=== PATIENT | male | born 1950 | race Caucasian/White ===

== ENCOUNTER 2018-09-12 09:15 | Inpatient (IN) | payer MEDICARE, OTHER ==
[2018-12-19] MEDS ORDERED: Sodium Chloride 0.9% 10 ML Syringe FLUSH PRN (00:01)
[2018-12-19] MEDS ORDERED: Lactated Ringers 1,000 ML IV SCH (00:01)
[2018-12-19] MEDS ORDERED: Lidocaine 1%/Sod Bicarbonate in NS 8.4% 1 ML Syringe IDERM PRN (00:01)
[2018-12-19] MEDS ORDERED: Pregabalin 25 MG Cap PO SCH (06:00)
[2018-12-19] MEDS ORDERED: Acetaminophen 325 MG Tab PO SCH (06:00)
[2018-12-19] MEDS ORDERED: oxyCODONE ER 10 MG TAB.ER PO SCH (06:00)
[2018-12-19] MEDS ORDERED: Cyclobenzaprine 10 MG Tab PO PRN (11:30)
[2018-12-19] MEDS ORDERED: Sennosides 8.6 MG Tab PO PRN (11:31)
[2018-12-19] MEDS ORDERED: Morphine 2 MG/ML Syringe IVPUSH PRN (11:31)
[2018-12-19] MEDS ORDERED: Bisacodyl 5 MG Tab PO PRN (11:31)
[2018-12-19] MEDS ORDERED: Magnesium Hydroxide 400 MG/5 ML Susp 30 ML Cup PO PRN (11:31)
[2018-12-19] MEDS ORDERED: Ondansetron 4 MG/2 ML SDV IVPUSH PRN (11:31)
[2018-12-19] MEDS ORDERED: Naloxone 0.4 MG/ML SDV IVPUSH PRN (11:31)
[2018-12-19] MEDS ORDERED: Midazolam 1 MG/ML 2 ML SDV ONE (11:46)
[2018-12-19] MEDS ORDERED: Lidocaine 1% PF 2 ML SDV ONE (11:46)
[2018-12-19] MEDS ORDERED: fentaNYL 250 MCG/5 ML SDV ONE (11:46)
[2018-12-19] MEDS ORDERED: Propofol 200 MG/20 ML SDV ONE ×2 (11:46→14:58)
[2018-12-19] MEDS ORDERED: Morphine PF 10 MG/10 ML SDV ONE (11:57)
[2018-12-19] MEDS ORDERED: Vancomycin 1 GM, Vancomycin 250 MG in Sodium Chloride 0.9% 250 ML IV ONE (12:00)
--- NOTE | 2018-12-19 12:37 | PCM.PREANE ---
<Kimmy Stiles - Last Filed: 12/19/18 12:29> Preanesthetic Assessment - Anesthesia/Transfusion/Family Hx Anesthesia History: Prior Anesthesia Without Reaction Transfusion History: No Prior Transfusion(s) - Review of Systems General: Fatigue Pulmonary: No Symptoms (Asthma(COPD) quit smoking 1979) Cardiovascular: No Symptoms (CAD, History of [place], History of HTN, CABG 1993 times 2 vessels) Other: Reports: Sinus Problem (seasonal allergies noted) - Physical Assessment NPO Status Date: 12/18/18 NPO Status Time: 22:00 Pulse: 54 O2 Sat by Pulse Oximetry: 94 Respiratory Rate: 16 Blood Pressure: 125/70 Temperature: 36.7 C Vital Signs: Last Vital Signs Temp 36.7 C 12/19/18 12:40 Pulse 54 L 12/19/18 12:40 Resp 16 12/19/18 12:40 BP 125/70 12/19/18 12:40 Pulse Ox 94 L 12/19/18 12:40 Height: 1.73 m Weight: 91 kg ASA Class: 3 Mental Status: Alert & Oriented x3 - Lab Values: Laboratory Last Values MRSA (PCR) Positive H 08/17/18 15:30 Blood Type O POSITIVE 12/19/18 11:15 Gel Antibody Screen Negative 12/19/18 11:15 All labs reviewed and noted and within acceptable ranges to proceed with scheduled procedure. - Imaging/EKG Impressions: Stress Test: EF: 69%/mild basal to distal inferior reversible defect with moderate hypokinesis CXR: negative Echocardiogram:EF: 55-60% mild to moderate mitral annular calcification EKG SB rate=54 with left axis deviation and Q waves in leads II, III, and AVF. - Allergies Allergies/Adverse Reactions: Allergies Allergy/AdvReac Type Severity Reaction Status Date / Time No Known Allergies Allergy Verified 12/16/18 12:34 - Anesthesia Plan Pre-Op Medication Ordered: Other (pre-op meds: 1134) - Acknowledgements Anesthesia Type Planned: Spinal Pt an Appropriate Candidate for the Planned Anesthesia: Yes Alternatives and Risks of Anesthesia Discussed w Pt/Guardian: Yes Pt/Guardian Understands and Agrees with Anesthesia Plan: Yes PreAnesthesia Questionnaire HEENT History: Reports: Impaired Vision, Other (See Below) Other HEENT History: partials, glasses Cardiovascular History: Reports: CAD, High Cholesterol, Hypertension, [place], Other (See Below) Other Cardiovascular History: angiogram Respiratory History: Reports: Asthma Gastrointestinal History: Reports: None Genitourinary History: Reports: None [employer] History: Reports: None Musculoskeletal History: Reports: None Neurological History: Reports: None Psychiatric History: Reports: None Endocrine/Metabolic History: Reports: None Hematologic History: Reports: None Immunologic History: Reports: None Oncologic (Cancer) History: Reports: None Dermatologic History: Reports: None - Past Surgical History Head Surgeries/Procedures: Reports: None Cardiovascular Surgical History: Reports: Coronary Artery Bypass Respiratory Surgical History: Reports: None GI Surgical History: Reports: Colonoscopy Female Surgical History: Reports: None Male Surgical History: Reports: None Endocrine Surgical History: Reports: None Neurological Surgical History: Reports: None Musculoskeletal Surgical History: Reports: None Oncologic Surgical History: Reports: None Dermatological Surgical History: Reports: None - SUBSTANCE USE Smoking Status *Q: Former Smoker Recreational Drug Use History: No - HOME MEDS Home Medications: Home Meds Albuterol [Ventolin HFA] 2 puff INH Q4H PRN 12/16/18 [History] Aspirin [Adult Aspirin] 81 mg PO DAILY 12/16/18 [History] Lisinopril 20 mg PO DAILY 12/16/18 [History] Simvastatin [Zocor] 40 mg PO DAILY 12/16/18 [History] - CURRENT (IN HOUSE) MEDS Current Meds: Current Medications Acetaminophen (Tylenol) 975 mg PO ONETIME [facility] Stop: 12/19/18 18:00 Last Admin: 12/19/18 11:34 Dose: 975 mg Aspirin (Ecotrin) 325 mg PO BID YANNA Bisacodyl (Dulcolax) 5 mg PO DAILY PRN PRN Reason: Constipation Cyclobenzaprine HCl (Flexeril) 10 mg PO TID PRN PRN Reason: Spasms Docusate Sodium (Colace) 100 mg PO BID YANNA Famotidine (Pepcid) 20 mg PO Q12H [facility] Lactated Ringer's (Ringers, Lactated) 1,000 mls @ 125 mls/hr IV ASDIRECTED [facility] Stop: 12/19/18 23:00 Last Admin: 12/19/18 11:10 Dose: 125 mls/hr Cefazolin Sodium/Dextrose 2 gm (/ Premix) 50 mls @ 100 mls/hr IV Q8H [facility] Stop: 12/20/18 03:59 Vancomycin HCl 1 gm/Vancomycin HCl 250 mg/ Sodium Chloride 250 mls @ 166.667 mls/hr IV ONETIME ONE Stop: 12/19/18 13:29 Last Admin: 12/19/18 12:36 Dose: 166.667 mls/hr Ketorolac Tromethamine (Toradol) 15 mg IVPUSH Q6H PRN PRN Reason: Pain Lidocaine/Sodium Bicarbonate (Buffered Lidocaine 1% In Ns 8.4%) 0.25 ml IDERM ONETIME PRN PRN Reason: Prior to IV Start Stop: 12/19/18 23:00 Magnesium Hydroxide (Milk Of Magnesia) 30 ml PO BID PRN PRN Reason: Constipation Morphine Sulfate (Morphine) 2 mg IVPUSH Q2H PRN PRN Reason: Breakthrough Pain Naloxone HCl (Narcan) 0.1 mg IVPUSH Q5M PRN PRN Reason: Oversedation Ondansetron HCl (Zofran) 4 mg IVPUSH Q6H PRN PRN Reason: Nausea/Vomiting Oxycodone HCl (Oxycontin) 10 mg PO ONETIME [facility] Stop: 12/19/18 23:00 Last Admin: 12/19/18 11:34 Dose: 10 mg Oxycodone/Acetaminophen (Percocet 325-5 Mg) 1 - 2 tab PO Q4H PRN PRN Reason: Pain Pregabalin (Lyrica) 50 mg PO ONETIME [facility] Stop: 12/19/18 18:00 Last Admin: 12/19/18 11:34 Dose: 50 mg Senna (Senna) 8.6 mg PO BID PRN PRN Reason: Constipation Sodium Chloride (Saline Flush) 10 ml FLUSH ASDIRECTED PRN PRN Reason: Keep Vein Open Discontinued Medications Bupivacaine HCl (Marcaine 0.25%) Confirm Administered Dose 30 ml .ROUTE .STK- MED ONE Stop: 12/19/18 12:09 Cefazolin Sodium (Ancef) Confirm Administered Dose 2 gm .ROUTE .STK-MED ONE Stop: 12/19/18 12:09 Morphine Sulfate 8 mg/Epinephrine HCl 0.3 mg/Cefuroxime Sodium 750 mg/Ketorolac Tromethamine 30 mg/Sodium Chloride 27.9 ml 0 mg .XX ONETIME ONE Stop: 12/19/18 12:01 Fentanyl (Sublimaze) Confirm Administered Dose 250 mcg .ROUTE .STK-MED ONE Stop: 12/19/18 11:47 Iodine (Iodine 2% Mild Tincture) Confirm Administered Dose 30 ml .ROUTE .STK- MED ONE Stop: 12/19/18 12:09 Lidocaine HCl (Xylocaine-Mpf 1%) Confirm Administered Dose 4 ml .ROUTE .STK-MED ONE Stop: 12/19/18 11:47 Midazolam HCl (Versed 1 Mg/Ml) Confirm Administered Dose 2 mg .ROUTE .STK-MED ONE Stop: 12/19/18 11:47 Morphine Sulfate (Duramorph Pf) Confirm Administered Dose 10 mg .ROUTE .STK-MED ONE Stop: 12/19/18 11:58 Propofol (Diprivan 20 Ml) Confirm Administered Dose 200 mg .ROUTE .STK-MED ONE Stop: 12/19/18 11:47 Tranexamic Acid (Cyklokapron) Confirm Administered Dose 1,000 mg .ROUTE .STK- MED ONE Stop: 12/19/18 12:09 Vancomycin HCl (Pharmacy To Dose - Vancomycin) 1 dose .XX ONETIME ONE Stop: 12/19/18 10:39 Vancomycin HCl (Vancomycin) Confirm Administered Dose 1 gm .ROUTE .STK-MED ONE Stop: 12/19/18 12:09 <Bayron Bahena R - Last Filed: 12/19/18 12:55> Preanesthetic Assessment - Anesthesia/Transfusion/Family Hx Anesthesia History: Prior Anesthesia Without Reaction Family History of Anesthesia Reaction: No Transfusion History: No Prior Transfusion(s) - Review of Systems General: Fatigue Pulmonary: No Symptoms Cardiovascular: No Symptoms, Dyspnea on Exertion Gastrointestinal: No Symptoms Neurological: No Symptoms Other: Reports: Sinus Problem - Physical Assessment ASA Class: 3 Mental Status: Alert & Oriented x3 Airway Class: Mallampati = 2 Dentition: Reports: Partial, Missing Tooth/Teeth (front) Thyro-Mental Finger Breadths: 2 Mouth Opening Finger Breadths: 2 ROM/Head Extension: Full Lungs: Clear to Auscultation, Normal Respiratory Effort Cardiovascular: Regular Rate, Regular Rhythm - Anesthesia Plan Pre-Op Medication Ordered: Other - Acknowledgements Anesthesia Type Planned: Spinal Pt an Appropriate Candidate for the Planned Anesthesia: Yes Alternatives and Risks of Anesthesia Discussed w Pt/Guardian: Yes Pt/Guardian Understands and Agrees with Anesthesia Plan: Yes PreAnesthesia Questionnaire Gastrointestinal History: Reports: GERD - SUBSTANCE USE Smoking Status *Q: Former Smoker Tobacco Use Within Last Twelve Months: Snuff/Dip Second Hand Smoke Exposure: Yes Days Per Week of Alcohol Use: 4 Number of Drinks Per Day: 2 Total Drinks Per Week: 8 Recreational Drug Use History: No
[2018-12-19] MEDS ORDERED: Ketorolac 15 MG/ML SDV IVPUSH PRN (13:00)
[2018-12-19] MEDS ORDERED: ePHEDrine/Normal Saline 25 MG/5 ML Syringe ONE ×2 (15:00→15:18)
[2018-12-19] MEDS: Bupivacaine 0.25% 30 ML SDV ONE ×2 (15:17→15:40)
[2018-12-19] MEDS: Iodine/Sodium Iodide 2% Tincture 30 ML Bottle ONE ×2 (15:17→15:36)
[2018-12-19] MEDS: ceFAZolin 1 GM Vial ONE ×2 (15:17→15:37)
[2018-12-19] MEDS: Vancomycin 1 GM SDV ONE ×2 (15:18→15:44)
[2018-12-19] MEDS: Morphine 8 MG, EPINEPHrine 0.3 MG, Cefuroxime 750 MG, Ketorolac 30 MG, Sodium Chloride ... ONE ×10 (15:18→15:42)
[2018-12-19] MEDS ORDERED: Albuterol 6.7 GM Inhaler INH PRN (16:07)
--- NOTE | 2018-12-19 16:21 | PCM.POSTAN ---
POST ANESTHESIA ASSESSMENT - MENTAL STATUS Mental Status: Alert, Oriented - VITAL SIGNS Pulse Rate: 73 SaO2: 94 Resp Rate: 12 Blood Pressure: 115/54 Temperature: 36.3 C - RESPIRATORY Respiratory Status: Respiratory Rate WNL, Airway Patent, O2 Saturation Stable - CARDIOVASCULAR CV Status: Pulse Rate WNL, Blood Pressure Stable - GASTROINTESTINAL GI Status: No Symptoms - PAIN Pain Score: 0 - POST OP HYDRATION Hydration Status: Adequate & Stable - OBSERVATIONS Free Text/Narrative:: no anesthesia complications noted
--- NOTE | 2018-12-19 16:58 | CR ---
Pelvis and right hip: AP view of the pelvis was obtained as well as lateral view of the right hip. Comparison: No previous pelvis or hip exam is available. Right hip prosthesis is seen. Components are aligned. Small amount of soft tissue air is noted from surgical procedure. Mild vascular calcification. Impression: 1. Satisfactory postoperative radiographic appearance of recently placed right hip prosthesis. 2. Other incidental findings. Diagnostic code #2
--- NOTE | 2018-12-19 18:59 | PCM.CONS ---
H&P History of Present Illness - General Date of Service: 12/19/18 Admit Problem/Dx: Admission Diagnosis/Problem Admission Diagnosis/Problem Osteoarthritis of hip Source of Information: Patient - History of Present Illness Initial Comments - Free Text/Narative: This is a 68-year-old male that comes in for a right total hip replacement. He has a history of coronary artery disease with two-vessel bypass in 1989 for post [place]. He has a history of mild intermittent asthma with only occasional use of albuterol in the summer. Patient has not used his albuterol in several months. Patient was seen by cardiology and [place] and then sent to a drum puller in [place]. Myocardial perfusion scan done in October of this year reported negative.. Postop patient is without chest discomfort, shortness breath, headache, blurred vision, or abdominal pain. He states he is generally feeling well except for a little lightheadedness from anesthesia. He states his resting heart rate is usually in the 60s. He is on lisinopril for his hypertension. He is not on a beta javier. Surgery and postop was without incident. Right Hip Pain Score (Numeric/FACES): 3 - Related Data Allergies/Adverse Reactions: Allergies Allergy/AdvReac Type Severity Reaction Status Date / Time No Known Allergies Allergy Verified 12/16/18 12:34 Home Medications: Home Meds Albuterol [Ventolin HFA] 2 puff INH Q4H PRN 12/16/18 [History] Lisinopril 20 mg PO DAILY 12/16/18 [History] Simvastatin [Zocor] 40 mg PO DAILY 12/16/18 [History] Acetaminophen/oxyCODONE [Percocet 325-5 MG] 1 - 2 tab PO Q6H PRN #60 tablet [Rx] Aspirin [Ecotrin] 325 mg PO BID #84 tab.ec 12/19/18 [Rx] Bisacodyl [Dulcolax] 5 mg PO DAILY PRN tablet 12/19/18 [Rx] Cyclobenzaprine [Flexeril] 10 mg PO TID PRN #40 tablet 12/19/18 [Rx] Docusate Sodium [Colace] 100 mg PO BID cap 12/19/18 [Rx] Famotidine [Pepcid] 20 mg PO Q12H tablet 12/19/18 [Rx] Magnesium Hydroxide [Milk of Magnesia] 30 ml PO BID PRN cup 12/19/18 [Rx] Sennosides [Senna] 8.6 mg PO BID PRN tablet 12/19/18 [Rx] Past Medical History HEENT History: Reports: Impaired Vision, Other (See Below) Other HEENT History: partials, glasses Cardiovascular History: Reports: Bypass, CAD, High Cholesterol, Hypertension, [place] , Other (See Below) (Left anterior fascicular block) Other Cardiovascular History: angiogram, CABG x2 Respiratory History: Reports: Asthma Gastrointestinal History: Reports: GERD Other Gastrointestinal History: peptic ulcer in the past. No current issues. Genitourinary History: Reports: None HOME MANAGER History: Reports: None Musculoskeletal History: Reports: None Neurological History: Reports: None Psychiatric History: Reports: None Endocrine/Metabolic History: Reports: None Hematologic History: Reports: None Immunologic History: Reports: None Oncologic (Cancer) History: Reports: None Dermatologic History: Reports: None - Infectious Disease History Infectious Disease History: Reports: Chicken Pox, MRSA - Past Surgical History Head Surgeries/Procedures: Reports: None HEENT Surgical History: Reports: None Cardiovascular Surgical History: Reports: Coronary Artery Bypass Respiratory Surgical History: Reports: None Male Surgical History: Reports: None Endocrine Surgical History: Reports: None Neurological Surgical History: Reports: None Musculoskeletal Surgical History: Reports: None Oncologic Surgical History: Reports: None Dermatological Surgical History: Reports: None Social & Family History - Family History Cardiac: Reports: Heart Failure, [place] OBGYN: Reports: Other (See Below) Other OBGYN Family History: Ovarian cancer Musculoskeletal: Reports: Arthritis Endocrine/Metabolic: Reports: Diabetes, type II Oncologic: Reports: Ovarian - Tobacco Use Smoking Status *Q: Former Smoker Years of Tobacco use: 11 Used Tobacco, but Quit: Yes Month/Year Tobacco Last Used: February 1980 Second Hand Smoke Exposure: Yes - Caffeine Use Caffeine Use: Reports: Coffee, Tea Other Caffeine Use: Daily - Alcohol Use Days Per Week of Alcohol Use: 4 Number of Drinks Per Day: 2 Total Drinks Per Week: 8 Date of Last Drink: 12/17/18 Time of Last Drink: 17:00 - Recreational Drug Use Recreational Drug Use: No Drug Use in Last 12 Months: No H&P Review of Systems - Review of Systems: Review Of Systems: ROS reveals no pertinent complaints other than HPI. Exam - Exam Exam: See Below - Vital Signs Vital Signs: Last Vital Signs Temp 97.3 F 12/19/18 17:00 Pulse 54 L 12/19/18 18:33 Resp 15 12/19/18 18:00 BP 128/57 L 12/19/18 18:33 Pulse Ox 98 12/19/18 18:33 Weight: 202 lb - Exam General: Alert, Oriented, Cooperative HEENT: Conjunctiva Clear, Mucosa Moist & [place] Neck: Supple, Trachea Midline Lungs: Clear to Auscultation, Normal Respiratory Effort Cardiovascular: Regular Rate, Regular Rhythm, Systolic Murmur (Faint systolic murmur at the right second intercostal space.) GI/Abdominal Exam: Normal Bowel Sounds, Soft, Non-Tender, No Distention, No Abnormal Bruit Back Exam: Normal Inspection Extremities: Other (SCD on left leg without signs of edema. Right leg not examined.) - Patient Data Lab Results Last 24 hrs: Laboratory Results - last 24 hr 12/19/18 Range/Units 11:15 Blood Type O POSITIVE Gel Antibody Screen Negative Imaging Impressions Last 24 hrs: ECG from September 12, 2018 showed sinus bradycardia with a ventricular rate of 54 bpm. The left anterior fascicular block. Evidence of old inferior [place]. Lateral T-wave changes. Consult PN Assessment/Plan POD#: 0 Procedures: Procedures CARDIOVASCULAR STRESS TEST (10/12/18) HT MUSCLE IMAGE SPECT MULT (10/12/18) MR-STAPH DNA AMP PROBE (12/09/18) TTE W/DOPPLER COMPLETE (10/12/18) (1) S/P prosthetic total arthroplasty of the hip SNOMED Code(s): 686454549825, 151750953387 Code(s): Z96.649 - PRESENCE OF UNSPECIFIED ARTIFICIAL HIP JOINT Current Visit: Yes Qualifiers: Laterality: right Qualified Code(s): Z96.641 - Presence of right artificial hip joint (2) Bradycardia SNOMED Code(s): 96269674 Code(s): R00.1 - BRADYCARDIA, UNSPECIFIED Current Visit: Yes (3) CAD (coronary artery disease) SNOMED Code(s): 15165072 Code(s): I25.10 - ATHSCL HEART DISEASE OF [place] CORONARY ARTERY W/O ANG PCTRS Current Visit: Yes (4) Asthma SNOMED Code(s): 418800709 Code(s): J45.909 - UNSPECIFIED ASTHMA, UNCOMPLICATED Current Visit: Yes Problem List Initiated/Reviewed/Updated: Yes Plan: s/p right total arthroplasty of the hip - no complications post op - Primary team managing pain control and VTE prophylaxis Asymptomatic Bradycardia - EKG from September 2018 showed his heart rate to be 54 bpm with sinus bradycardia. Currently his pulse is ranging between 48 and 53. - patient without symptoms. Monitor overnight. He is not on any beta blockers. CAD - no chest pain or SOB - Negative coronary cath reported by pt. Mild Intermittent Asthma - Lungs clear, no cough or SOB - Encourage spirometry Recommend start home meds. No further recommendations at this time.
[2018-12-19] MEDS: ceFAZolin 2 GM in Premix Bag 1 BAG IV SCH (20:42)
[2018-12-19] MEDS: Docusate Sodium 100 MG Cap PO SCH (20:43)
[2018-12-19] MEDS: Famotidine 20 MG Tab PO SCH (20:43)
[2018-12-19] MEDS: Acetaminophen/oxyCODONE 325-5 MG Tab PO PRN (23:28)
[2018-12-20] MEDS: ceFAZolin 2 GM in Premix Bag 1 BAG IV SCH ×2 (03:42→11:14)
[2018-12-20] MEDS: Acetaminophen/oxyCODONE 325-5 MG Tab PO PRN ×2 (03:42→13:02)
--- NOTE | 2018-12-20 07:36 | PCM48HPAN ---
Post Anesthesia Note - EVALUATION WITHIN 48HRS OF ANESTHETIC Vital Signs in Normal Range: Yes Patient Participated in Evaluation: Yes Respiratory Function Stable: Yes Airway Patent: Yes Cardiovascular Function Stable: Yes Hydration Status Stable: Yes Pain Control Satisfactory: Yes Nausea and Vomiting Control Satisfactory: Yes Mental Status Recovered: Yes (no complaints) Pulse Rate: 56 Resp Rate: 16 Temperature: 99.0 F Blood Pressure: 121/58
--- NOTE | 2018-12-20 08:43 | PCM.OPNOTE ---
- General Post-Op/Procedure Note Date of Surgery/Procedure: 12/19/18 Operative Procedure(s): right total hip arthroplasty Pre Op Diagnosis: right hip osteoarthrosis Post-Op Diagnosis: Same Anesthesia Technique: Local, MAC, Spinal Primary Surgeon: Alton Abrams Anesthesia Provider: Azul Guadarrama Wax Molder: Olivia Donahue Wax Molder: Monica Gloria EBL in mLs: 300 Complications: None Condition: Good Free Text/Narrative:: Intake & Output 12/19/18 12/20/18 12/20/18 22:59 06:59 14:59 Intake Total 620 1000 Output Total 150 1 Balance 470 999 size 6 stem size 56 solid 36+2.5
[2018-12-20] MEDS ORDERED: Aspirin 325 MG Tab.EC PO SCH (09:00)
[2018-12-20] MEDS ORDERED: Simvastatin 40 MG Tab PO SCH (09:00)
[2018-12-20] MEDS ORDERED: Lisinopril 20 MG Tab PO SCH (09:00)
[2018-12-20] MEDS: Docusate Sodium 100 MG Cap PO SCH (09:24)
[2018-12-20] MEDS: Famotidine 20 MG Tab PO SCH (09:24)
--- NOTE | 2018-12-20 09:31 | PCM.CONSN ---
- General Info Date of Service: 12/20/18 Admission Dx/Problem (Free Text): Admission Diagnosis/Problem Admission Diagnosis/Problem Osteoarthritis of hip Subjective Update: Patient is doing well from a medical standpoint. Patient without shortness of breath, chest pain, or abdominal pain. - Review of Systems General: Reports: No Symptoms HEENT: Reports: No Symptoms Pulmonary: Reports: No Symptoms Cardiovascular: Reports: No Symptoms. Denies: Chest Pain Gastrointestinal: Reports: No Symptoms. Denies: Abdominal Pain Neurological: Reports: No Symptoms. Denies: Confusion, Dizziness Psychiatric: Reports: No Symptoms - Patient Data Vitals - Most Recent: Last Vital Signs Temp 99.0 F 12/20/18 07:36 Pulse 56 L 12/20/18 07:36 Resp 16 12/20/18 08:00 BP 133/60 12/20/18 09:24 Pulse Ox 95 12/20/18 08:00 Weight - Most Recent: 211 lb 4.8 oz I&O - Last 24 Hours: Intake & Output 12/19/18 12/20/18 12/20/18 22:59 06:59 14:59 Intake Total 620 1000 Output Total 150 1 Balance 470 999 Lab Results Last 24 Hours: Laboratory Results - last 24 hr 12/19/18 12/20/18 12/20/18 Range/Units 11:15 05:46 05:46 WBC 8.81 (4.23-9.07) K/mm3 RBC 3.81 L (4.63-6.08) M/mm3 Hgb 12.2 L (13.7-17.5) gm/L Hct 36.9 L (40.1-51.0) % MCV 96.9 H (79.0-92.2) fl MCH 32.0 (25.7-32.2) pg MCHC 33.1 (32.2-35.5) g/dl RDW Std Deviation 44.4 H (35.1-43.9) fL Plt Count 187 (163-337) K/mm3 MPV 9.3 L (9.4-12.3) fl Sodium 138 (136-145) mEq/L Potassium 4.0 (3.5-5.1) mEq/L Chloride 104 (98-107) mEq/L Carbon Dioxide 25 (21-32) mEq/L Anion Gap 13.0 (5-15) BUN 16 (7-18) mg/dL Creatinine 1.3 (0.7-1.3) mg/dL Est Cr Clr Drug Dosing 52.62 mL/min Estimated GFR (MDRD) 55 (>60) mL/min BUN/Creatinine Ratio 12.3 L (14-18) Glucose 134 H (80-115) mg/dL Calcium 8.1 L (8.5-10.1) mg/dL Total Bilirubin 0.9 (0.2-1.0) mg/dL AST 47 H (15-37) U/L ALT 33 (16-63) U/L Alkaline Phosphatase 39 L (46-116) U/L Total Protein 6.2 L (6.4-8.2) g/dl Albumin 3.0 L (3.4-5.0) g/dl Globulin 3.2 gm/dL Albumin/Globulin Ratio 0.9 L (1-2) Blood Type O POSITIVE Gel Antibody Screen Negative Med Orders - Current: Current Medications Albuterol (Proventil Hfa) 0 gm INH Q4H PRN PRN Reason: SHORTNESS OF BREATH Aspirin (Ecotrin) 325 mg PO BID [facility] Last Admin: 12/20/18 09:24 Dose: 325 mg Bisacodyl (Dulcolax) 5 mg PO DAILY PRN PRN Reason: Constipation Cyclobenzaprine HCl (Flexeril) 10 mg PO TID PRN PRN Reason: Spasms Last Admin: 12/20/18 02:44 Dose: 10 mg Docusate Sodium (Colace) 100 mg PO BID [facility] Last Admin: 12/20/18 09:24 Dose: 100 mg Famotidine (Pepcid) 20 mg PO Q12H [facility] Last Admin: 12/20/18 09:24 Dose: 20 mg Cefazolin Sodium/Dextrose 2 gm (/ Premix) 50 mls @ 100 mls/hr IV Q8H [facility] Stop: 12/20/18 12:29 Last Admin: 12/20/18 03:42 Dose: 100 mls/hr Ketorolac Tromethamine (Toradol) 15 mg IVPUSH Q6H PRN PRN Reason: Pain Last Admin: 12/20/18 02:42 Dose: 15 mg Lisinopril (Prinivil) 20 mg PO DAILY [facility] Last Admin: 03/19/19 09:24 Dose: 20 mg Magnesium Hydroxide (Milk Of Magnesia) 30 ml PO BID PRN PRN Reason: Constipation Morphine Sulfate (Morphine) 2 mg IVPUSH Q2H PRN PRN Reason: Breakthrough Pain Naloxone HCl (Narcan) 0.1 mg IVPUSH Q5M PRN PRN Reason: Oversedation Ondansetron HCl (Zofran) 4 mg IVPUSH Q6H PRN PRN Reason: Nausea/Vomiting Oxycodone/Acetaminophen (Percocet 325-5 Mg) 1 - 2 tab PO Q4H PRN PRN Reason: Pain Last Admin: 12/20/18 03:42 Dose: 2 tab Senna (Senna) 8.6 mg PO BID PRN PRN Reason: Constipation Simvastatin (Zocor) 40 mg PO DAILY [facility] Last Admin: 12/20/18 09:24 Dose: 40 mg Sodium Chloride (Saline Flush) 10 ml FLUSH ASDIRECTED PRN PRN Reason: Keep Vein Open Discontinued Medications Acetaminophen (Tylenol) 975 mg PO ONETIME [facility] Stop: 12/19/18 18:00 Last Admin: 12/19/18 11:34 Dose: 975 mg Bupivacaine HCl (Marcaine 0.25%) Confirm Administered Dose 30 ml .ROUTE .STK- MED ONE Stop: 12/19/18 12:09 Last Admin: 12/19/18 15:40 Dose: 30 ml Cefazolin Sodium (Ancef) Confirm Administered Dose 2 gm .ROUTE .STK-MED ONE Stop: 12/19/18 12:09 Last Admin: 12/19/18 15:37 Dose: 2 gm Morphine Sulfate 8 mg/Epinephrine HCl 0.3 mg/Cefuroxime Sodium 750 mg/Ketorolac Tromethamine 30 mg/Sodium Chloride 27.9 ml 0 mg .XX ONETIME ONE Stop: 12/19/18 12:01 Last Admin: 12/19/18 15:42 Dose: 788.3 mg Ephedrine Sulfate (Ephedrine In Ns) Confirm Administered Dose 50 mg .ROUTE .STK- MED ONE Stop: 12/19/18 15:01 Ephedrine Sulfate (Ephedrine In Ns) Confirm Administered Dose 25 mg .ROUTE .STK- MED ONE Stop: 12/19/18 15:19 Fentanyl (Sublimaze) Confirm Administered Dose 250 mcg .ROUTE .STK-MED ONE Stop: 12/19/18 11:47 Lactated Ringer's (Ringers, Lactated) 1,000 mls @ 125 mls/hr IV ASDIRECTED [facility] Stop: 12/19/18 23:00 Last Admin: 12/19/18 11:10 Dose: 125 mls/hr Vancomycin HCl 1 gm/Vancomycin HCl 250 mg/ Sodium Chloride 250 mls @ 166.667 mls/hr IV ONETIME ONE Stop: 12/19/18 13:29 Last Admin: 12/19/18 12:36 Dose: 166.667 mls/hr Iodine (Iodine 2% Mild Tincture) Confirm Administered Dose 30 ml .ROUTE .STK- MED ONE Stop: 12/19/18 12:09 Last Admin: 12/19/18 15:36 Dose: 18 ml Lidocaine HCl (Xylocaine-Mpf 1%) Confirm Administered Dose 4 ml .ROUTE .STK-MED ONE Stop: 12/19/18 11:47 Lidocaine/Sodium Bicarbonate (Buffered Lidocaine 1% In Ns 8.4%) 0.25 ml IDERM ONETIME PRN PRN Reason: Prior to IV Start Stop: 12/19/18 23:00 Midazolam HCl (Versed 1 Mg/Ml) Confirm Administered Dose 2 mg .ROUTE .STK-MED ONE Stop: 12/19/18 11:47 Morphine Sulfate (Duramorph Pf) Confirm Administered Dose 10 mg .ROUTE .STK-MED ONE Stop: 12/19/18 11:58 Oxycodone HCl (Oxycontin) 10 mg PO ONETIME [facility] Stop: 12/19/18 23:00 Last Admin: 12/19/18 11:34 Dose: 10 mg Pregabalin (Lyrica) 50 mg PO ONETIME [facility] Stop: 12/19/18 18:00 Last Admin: 12/19/18 11:34 Dose: 50 mg Propofol (Diprivan 20 Ml) Confirm Administered Dose 200 mg .ROUTE .STK-MED ONE Stop: 12/19/18 11:47 Propofol (Diprivan 20 Ml) Confirm Administered Dose 600 mg .ROUTE .STK-MED ONE Stop: 12/19/18 14:59 Tranexamic Acid (Cyklokapron) Confirm Administered Dose 1,000 mg .ROUTE .STK- MED ONE Stop: 12/19/18 12:09 Last Admin: 12/19/18 15:45 Dose: 1,000 mg Vancomycin HCl (Pharmacy To Dose - Vancomycin) 1 dose .XX ONETIME ONE Stop: 12/19/18 10:39 Last Admin: 12/20/18 03:57 Dose: Not Given Vancomycin HCl (Vancomycin) Confirm Administered Dose 1 gm .ROUTE .STK-MED ONE Stop: 12/19/18 12:09 Last Admin: 12/19/18 15:44 Dose: 1 gm - Exam General: Alert, Oriented, Cooperative Neck: Supple Lungs: Clear to Auscultation, Normal Respiratory Effort Cardiovascular: Regular Rate, Regular Rhythm GI/Abdominal Exam: Normal Bowel Sounds, Soft, No Distention Extremities: Normal Inspection, No Pedal Edema Skin: Warm, Dry, Intact Consult PN Assessment/Plan POD#: 1 Procedures: Procedures CARDIOVASCULAR STRESS TEST (10/12/18) HT MUSCLE IMAGE SPECT MULT (10/12/18) MR-STAPH DNA AMP PROBE (12/09/18) TTE W/DOPPLER COMPLETE (10/12/18) (1) S/P prosthetic total arthroplasty of the hip SNOMED Code(s): 645338892896, 483849311332 Code(s): Z96.649 - PRESENCE OF UNSPECIFIED ARTIFICIAL HIP JOINT Current Visit: Yes Qualifiers: Laterality: right Qualified Code(s): Z96.641 - Presence of right artificial hip joint (2) Bradycardia SNOMED Code(s): 82476400 Code(s): R00.1 - BRADYCARDIA, UNSPECIFIED Current Visit: Yes (3) CAD (coronary artery disease) SNOMED Code(s): 48331589 Code(s): I25.10 - ATHSCL HEART DISEASE OF [place] CORONARY ARTERY W/O ANG PCTRS Current Visit: Yes (4) Asthma SNOMED Code(s): 193299412 Code(s): J45.909 - UNSPECIFIED ASTHMA, UNCOMPLICATED Current Visit: Yes Problem List Initiated/Reviewed/Updated: Yes Plan: Patient is stable from a medical standpoint. We will sign off at this time. Feel free to call us if there is anything else needed. Thank you for letting us help you care for this this patient.
--- NOTE | 2018-12-20 11:08 | OR ---
DATE OF OPERATION: 12/19/2018 SURGEON: Alton Abrams MD OPERATION PERFORMED: Right total hip arthroplasty. PREOPERATIVE DIAGNOSIS: Right hip osteoarthrosis. POSTOPERATIVE DIAGNOSIS: Right hip osteoarthrosis. ANESTHESIA: Local MAC with spinal. ANESTHESIA PROVIDER: Azul Guadarrama. ASSISTANTS: Olivia Donahue PA-C, and Monica Gloria LPN. ESTIMATED BLOOD LOSS: 300 mL. COMPLICATIONS: None. CONDITION: Stable. IMPLANTS: 1. [place] size 6 Accolade II stem. 2. Matt size 56 solid Tritanium acetabular cup. 3. Matt size 36 +2.5 mm Biolox femoral head. DESCRIPTION OF PROCEDURE: The patient was identified in the preop holding area, where proper site was marked and identified by the surgeon. The patient was taken back to the operating theater, where after adequate anesthesia, the patient was placed in a left lateral decubitus position. Axillary roll was placed. All bony prominences were well padded. Pegs were then placed and well padded. The patient's gluteal fold was parallel to the floor. Right hip was then sterilely prepped and draped in the usual sterile fashion. OR time-out was performed. The patient received 2 g of IV Ancef. At this time, a standard posterior incision was made centered over the greater trochanter. This was taken down to the IT band and gluteal fascia, which was incised along the incisional length. This was taken down the short external rotators, which were identified and takedown of short external rotators was done from the level of the piriformis down to the level of the lesser trochanter. At this time, the hip was dislocated. Neck cut was completed and found to be adequate. Attention was turned to the acetabulum. Anterior and posterior acetabular retractors were placed and the pulvinar was removed as well as remaining labrum. Starting with a 49 reamer, I was able to ream up to a 55 for a 56 mm cup. At this time, a Tritanium acetabular cup was impacted into place in roughly 45 to 50 degrees of abduction and 20 degrees of anteversion. At this time, the flat 36 mm liner was impacted into place. Attention was turned back to the femur. Box chisel was used out laterally. Starter awl was placed down the canal. Starting with the 0 broach, I was able to broach up to a size 6, which was found to be rotationally and vertically stable. A proper neck length along with a 36 +0 was trialed that was found to be just a few millimeters short, so we did at this time trial a 2.5 which had adequate synagogue of leg lengths and was very stable throughout range of motion. At this time, the size 6 Accolade II stem was impacted into place along with a 36 +2.5 mm Biolox femoral head. At this time, the hip was then relocated. A #5 Ethibond suture was used for closure of the short external rotators and capsule. A 1 L of dilute Betadine solution was irrigated through the hip along with 3 L of pulse lavage irrigation with Ancef. Topical tranexamic acid was placed as well as vancomycin powder. A periarticular injection was then completed. A #2 barbed suture was used for closure of the IT band and gluteal fascia, 2-0 Vicryl was used subcutaneously and Prineo was used for the skin. The patient had a sterile soft dressing applied and was sent to the PACU in stable condition. LAZARUS /[id number]
--- NOTE | 2018-12-20 19:59 | PCM.SURGPN ---
- General Info Date of Service: 12/20/18 POD#: 1 Functional Status: Reports: Pain Controlled, Tolerating Diet, Ambulating, Urinating, Incentive Spirometry, Other (The pt states he is doing well.) - Patient Data Vitals - Most Recent: Last Vital Signs Temp 99.0 F 12/20/18 07:36 Pulse 56 L 12/20/18 07:36 Resp 16 12/20/18 09:26 BP 133/60 12/20/18 09:26 Pulse Ox 95 12/20/18 08:00 Weight - Most Recent: 211 lb 4.8 oz I&O - Last 24 Hours: Intake & Output 12/20/18 12/20/18 12/20/18 06:59 14:59 22:59 Intake Total 1000 460 Output Total 1 Balance 999 460 Lab Results Last 24 Hrs: Laboratory Results - last 24 hr 12/20/18 12/20/18 Range/Units 05:46 05:46 WBC 8.81 (4.23-9.07) K/mm3 RBC 3.81 L (4.63-6.08) M/mm3 Hgb 12.2 L (13.7-17.5) gm/L Hct 36.9 L (40.1-51.0) % MCV 96.9 H (79.0-92.2) fl MCH 32.0 (25.7-32.2) pg MCHC 33.1 (32.2-35.5) g/dl RDW Std Deviation 44.4 H (35.1-43.9) fL Plt Count 187 (163-337) K/mm3 MPV 9.3 L (9.4-12.3) fl Sodium 138 (136-145) mEq/L Potassium 4.0 (3.5-5.1) mEq/L Chloride 104 (98-107) mEq/L Carbon Dioxide 25 (21-32) mEq/L Anion Gap 13.0 (5-15) BUN 16 (7-18) mg/dL Creatinine 1.3 (0.7-1.3) mg/dL Est Cr Clr Drug Dosing 52.62 mL/min Estimated GFR (MDRD) 55 (>60) mL/min BUN/Creatinine Ratio 12.3 L (14-18) Glucose 134 H (80-115) mg/dL Calcium 8.1 L (8.5-10.1) mg/dL Total Bilirubin 0.9 (0.2-1.0) mg/dL AST 47 H (15-37) U/L ALT 33 (16-63) U/L Alkaline Phosphatase 39 L (46-116) U/L Total Protein 6.2 L (6.4-8.2) g/dl Albumin 3.0 L (3.4-5.0) g/dl Globulin 3.2 gm/dL Albumin/Globulin Ratio 0.9 L (1-2) Med Orders - Current: Current Medications Discontinued Medications Acetaminophen (Tylenol) 975 mg PO ONETIME [facility] Stop: 12/19/18 18:00 Last Admin: 12/19/18 11:34 Dose: 975 mg Albuterol (Proventil Hfa) 0 gm INH Q4H PRN PRN Reason: SHORTNESS OF BREATH Aspirin (Ecotrin) 325 mg PO BID [facility] Last Admin: 12/20/18 09:24 Dose: 325 mg Bisacodyl (Dulcolax) 5 mg PO DAILY PRN PRN Reason: Constipation Bupivacaine HCl (Marcaine 0.25%) Confirm Administered Dose 30 ml .ROUTE .STK- MED ONE Stop: 12/19/18 12:09 Last Admin: 12/19/18 15:40 Dose: 30 ml Cefazolin Sodium (Ancef) Confirm Administered Dose 2 gm .ROUTE .STK-MED ONE Stop: 12/19/18 12:09 Last Admin: 12/19/18 15:37 Dose: 2 gm Morphine Sulfate 8 mg/Epinephrine HCl 0.3 mg/Cefuroxime Sodium 750 mg/Ketorolac Tromethamine 30 mg/Sodium Chloride 27.9 ml 0 mg .XX ONETIME ONE Stop: 12/19/18 12:01 Last Admin: 12/19/18 15:42 Dose: 788.3 mg Cyclobenzaprine HCl (Flexeril) 10 mg PO TID PRN PRN Reason: Spasms Last Admin: 12/20/18 02:44 Dose: 10 mg Docusate Sodium (Colace) 100 mg PO BID [facility] Last Admin: 12/20/18 09:24 Dose: 100 mg Ephedrine Sulfate (Ephedrine In Ns) Confirm Administered Dose 50 mg .ROUTE .STK- MED ONE Stop: 12/19/18 15:01 Ephedrine Sulfate (Ephedrine In Ns) Confirm Administered Dose 25 mg .ROUTE .STK- MED ONE Stop: 12/19/18 15:19 Famotidine (Pepcid) 20 mg PO Q12H [facility] Last Admin: 12/20/18 09:24 Dose: 20 mg Fentanyl (Sublimaze) Confirm Administered Dose 250 mcg .ROUTE .STK-MED ONE Stop: 12/19/18 11:47 Lactated Ringer's (Ringers, Lactated) 1,000 mls @ 125 mls/hr IV ASDIRECTED [facility] Stop: 12/19/18 23:00 Last Admin: 12/19/18 11:10 Dose: 125 mls/hr Cefazolin Sodium/Dextrose 2 gm (/ Premix) 50 mls @ 100 mls/hr IV Q8H [facility] Stop: 12/20/18 12:29 Last Admin: 12/20/18 11:14 Dose: 100 mls/hr Vancomycin HCl 1 gm/Vancomycin HCl 250 mg/ Sodium Chloride 250 mls @ 166.667 mls/hr IV ONETIME ONE Stop: 12/19/18 13:29 Last Admin: 12/19/18 12:36 Dose: 166.667 mls/hr Iodine (Iodine 2% Mild Tincture) Confirm Administered Dose 30 ml .ROUTE .STK- MED ONE Stop: 12/19/18 12:09 Last Admin: 12/19/18 15:36 Dose: 18 ml Ketorolac Tromethamine (Toradol) 15 mg IVPUSH Q6H PRN PRN Reason: Pain Last Admin: 12/20/18 02:42 Dose: 15 mg Lidocaine HCl (Xylocaine-Mpf 1%) Confirm Administered Dose 4 ml .ROUTE .STK-MED ONE Stop: 12/19/18 11:47 Lidocaine/Sodium Bicarbonate (Buffered Lidocaine 1% In Ns 8.4%) 0.25 ml IDERM ONETIME PRN PRN Reason: Prior to IV Start Stop: 12/19/18 23:00 Lisinopril (Prinivil) 20 mg PO DAILY [facility] Last Admin: 12/20/18 09:24 Dose: 20 mg Magnesium Hydroxide (Milk Of Magnesia) 30 ml PO BID PRN PRN Reason: Constipation Midazolam HCl (Versed 1 Mg/Ml) Confirm Administered Dose 2 mg .ROUTE .STK-MED ONE Stop: 12/19/18 11:47 Morphine Sulfate (Morphine) 2 mg IVPUSH Q2H PRN PRN Reason: Breakthrough Pain Morphine Sulfate (Duramorph Pf) Confirm Administered Dose 10 mg .ROUTE .STK-MED ONE Stop: 12/19/18 11:58 Naloxone HCl (Narcan) 0.1 mg IVPUSH Q5M PRN PRN Reason: Oversedation Ondansetron HCl (Zofran) 4 mg IVPUSH Q6H PRN PRN Reason: Nausea/Vomiting Oxycodone HCl (Oxycontin) 10 mg PO ONETIME [facility] Stop: 12/19/18 23:00 Last Admin: 12/19/18 11:34 Dose: 10 mg Oxycodone/Acetaminophen (Percocet 325-5 Mg) 1 - 2 tab PO Q4H PRN PRN Reason: Pain Last Admin: 12/20/18 13:02 Dose: 2 tab Pregabalin (Lyrica) 50 mg PO ONETIME [facility] Stop: 12/19/18 18:00 Last Admin: 12/19/18 11:34 Dose: 50 mg Propofol (Diprivan 20 Ml) Confirm Administered Dose 200 mg .ROUTE .STK-MED ONE Stop: 12/19/18 11:47 Propofol (Diprivan 20 Ml) Confirm Administered Dose 600 mg .ROUTE .STK-MED ONE Stop: 12/19/18 14:59 Senna (Senna) 8.6 mg PO BID PRN PRN Reason: Constipation Simvastatin (Zocor) 40 mg PO DAILY [facility] Last Admin: 12/20/18 09:24 Dose: 40 mg Sodium Chloride (Saline Flush) 10 ml FLUSH ASDIRECTED PRN PRN Reason: Keep Vein Open Tranexamic Acid (Cyklokapron) Confirm Administered Dose 1,000 mg .ROUTE .STK- MED ONE Stop: 12/19/18 12:09 Last Admin: 12/19/18 15:45 Dose: 1,000 mg Vancomycin HCl (Pharmacy To Dose - Vancomycin) 1 dose .XX ONETIME ONE Stop: 12/19/18 10:39 Last Admin: 12/20/18 03:57 Dose: Not Given Vancomycin HCl (Vancomycin) Confirm Administered Dose 1 gm .ROUTE .STK-MED ONE Stop: 12/19/18 12:09 Last Admin: 12/19/18 15:44 Dose: 1 gm - Exam Wound/Incisions: Dressing Dry and Intact General: Alert, Cooperative, No Acute Distress Lungs: Normal Respiratory Effort Extremities: Other (NVS intact for BLE. Imelda's negative. Right thigh soft.) - Problem List Review Problem List Initiated/Reviewed/Updated: Yes - My Orders Last 24 Hours: Active Orders 24 hr Category Date Time Status Notify Provider Consults [RC] ASDIRECTED Care 12/20/18 06:52 Active Ready for Discharge [RC] PER UNIT ROUTINE Care 12/20/18 09:35 Active Consult to Physician [CONS] Routine Cons 12/20/18 06:50 Active - Assessment Assessment (Free Text/Narrative):: POD#1 - right VICKY - Plan Plan (Free Text/Narrative):: 1. Hgb 12.2. 2. 325mg ASA PO BID, frequent mobility, TEDs. 3. VICKY precautions. 4. Discharge to home today. The pt will have the assistance of his . The pt's case was discussed with Dr. Abrams.
--- NOTE | 2018-12-20 20:00 | PCM.DCSUM1 ---
Discharge Summary - Hospital Course Brief History: Jared is a 68 yo male who underwent right VICKY with Dr. Abrams on 12-19-2018. The procedure was completed under spinal anesthesia with sedation. The pt tolerated the procedure well and was admitted to the Medical-Surgical Unit. Medical management was provided by the Hospitalist service. The pt's Hospital course was uneventful. The pt's Hgb on POD#1 was 12.2. On POD#1, 325mg ASA BID was initiated for VTE prophylaxis. SCDs and TEDs were also ordered. A Mepilex dressing was placed at the incision site at the time of surgery and remained clean and dry. The pt participated in P.T. and O.T. and progressed well. He followed the VICKY precautions. The pt was allowed to WBAT. On POD#1, the pt was deemed appropriate to discharge to home with his . - Discharge Data Discharge Date: 12/20/18 Discharge Disposition: Home, Self-Care 01 Condition: Good - Patient Summary/Data Operative Procedure(s) Performed: right total hip arthroplasty Consults: Consultations 12/19/18 11:30 OT Evaluation and Treatment [CONS] Routine PT Evaluation and Treatment [CONS] Routine 12/20/18 06:50 Consult to Physician [CONS] Routine - Patient Instructions Diet: Usual Diet as Tolerated Activity: Apply Ice, As Tolerated, Elevate Extremity, Full Weight Bearing Activity, Other: Follow the total hip precautions. Driving: Do Not Drive Showering/Bathing: May Shower Wound/Incision Care: Keep Operative Site/Wound Site Clean and Dry, Do NOT Change Dressing Notify Provider of: Fever, Increased Pain, Swelling and Redness, Drainage, Nausea and/or Vomiting Other/Special Instructions: Please get up and moving around EVERY HOUR while awake. This helps to prevent blood clots. Please use your walker and have help with mobility as needed. Take a short walk in your home every hour while awake. Please take 325mg Aspirin TWICE daily. The aspirin is being used for blood clot prevention and not for pain management so please do not miss a dose of the medication. You could use a medication like Zantac or Pepcid and a medication like Prilosec or Nexium to protect your stomach while you are using the aspirin. At home, please complete the exercises that you learned during the Hospital stay. Schedule for physical therapy. Follow the total hip precautions. Use the pain medication as needed. The medication may cause drowsiness and constipation. Contact your primary care provider for instructions if you are constipated. You may use a stool softener like docusate sodium or Colace 100mg twice daily and/or a laxative like Miralax daily for constipation. Increase your water and fiber intake while you are using the pain medication. Discontinue use of the pain medication as soon as able. Please do not use other medications that may cause drowsiness (other pain medications, anxiety pills, cold medications, sleeping pills, etc) while using the prescription pain medication. Do not use alcohol while using the pain medication. Wear the JORGE hose during the day and you may remove these at night. Elevate the limb to decrease swelling. Place ice to the area often. Place a towel between your skin and the blue pad. Use the incentive spirometer often. Take deep breaths throughout the day. Please keep the dressing in place until follow-up. Notify the Clinic if the dressing becomes saturated. Increase your protein intake while you are healing. If you have diabetes, please closely monitor your blood sugars and notify your primary care provider with abnormal values. Elevated blood sugars increases the risk of infection. Call the Clinic with questions or concerns - [phone]. - Discharge Plan *PRESCRIPTION DRUG MONITORING PROGRAM REVIEWED*: No *COPY OF PRESCRIPTION DRUG MONITORING REPORT IN PATIENT CLARISSA: No Prescriptions/Med Rec: Acetaminophen/oxyCODONE [Percocet 325-5 MG] 1 - 2 tab PO Q6H PRN #60 tablet PRN Reason: Pain Aspirin [Ecotrin] 325 mg PO BID #84 tab.ec Cyclobenzaprine [Flexeril] 10 mg PO TID PRN #40 tablet PRN Reason: Spasms Home Medications: Home Meds Albuterol [Ventolin HFA] 2 puff INH Q4H PRN 12/16/18 [History] Lisinopril 20 mg PO DAILY 12/16/18 [History] Simvastatin [Zocor] 40 mg PO DAILY 12/16/18 [History] Acetaminophen/oxyCODONE [Percocet 325-5 MG] 1 - 2 tab PO Q6H PRN #60 tablet [Rx] Aspirin [Ecotrin] 325 mg PO BID #84 tab.ec 12/19/18 [Rx] Bisacodyl [Dulcolax] 5 mg PO DAILY PRN tablet 12/19/18 [Rx] Cyclobenzaprine [Flexeril] 10 mg PO TID PRN #40 tablet 12/19/18 [Rx] Docusate Sodium [Colace] 100 mg PO BID cap 12/19/18 [Rx] Famotidine [Pepcid] 20 mg PO Q12H tablet 12/19/18 [Rx] Magnesium Hydroxide [Milk of Magnesia] 30 ml PO BID PRN cup 12/19/18 [Rx] Sennosides [Senna] 8.6 mg PO BID PRN tablet 12/19/18 [Rx] Patient Handouts: Total Hip Replacement, Care After, Total Hip Replacement, [id number] Referrals: Olivia Donahue PA-C [Physician Regulatory Compliance Engineer] - (You have a follow up with Olivia Donahue on 12/27/18 at 245pm, and a second on 01/03/19 at 1115.) - Discharge Summary/Plan Comment DC Time >30 min.: No - Patient Data Vitals - Most Recent: Last Vital Signs Temp 99.0 F 12/20/18 07:36 Pulse 56 L 12/20/18 07:36 Resp 16 12/20/18 09:26 BP 133/60 12/20/18 09:26 Pulse Ox 95 12/20/18 08:00 Weight - Most Recent: 211 lb 4.8 oz I&O - Last 24 hours: Intake & Output 12/20/18 12/20/18 12/20/18 06:59 14:59 22:59 Intake Total 1000 460 Output Total 1 Balance 999 460 Lab Results - Last 24 hrs: Laboratory Results - last 24 hr 12/20/18 12/20/18 Range/Units 05:46 05:46 WBC 8.81 (4.23-9.07) K/mm3 RBC 3.81 L (4.63-6.08) M/mm3 Hgb 12.2 L (13.7-17.5) gm/L Hct 36.9 L (40.1-51.0) % MCV 96.9 H (79.0-92.2) fl MCH 32.0 (25.7-32.2) pg MCHC 33.1 (32.2-35.5) g/dl RDW Std Deviation 44.4 H (35.1-43.9) fL Plt Count 187 (163-337) K/mm3 MPV 9.3 L (9.4-12.3) fl Sodium 138 (136-145) mEq/L Potassium 4.0 (3.5-5.1) mEq/L Chloride 104 (98-107) mEq/L Carbon Dioxide 25 (21-32) mEq/L Anion Gap 13.0 (5-15) BUN 16 (7-18) mg/dL Creatinine 1.3 (0.7-1.3) mg/dL Est Cr Clr Drug Dosing 52.62 mL/min Estimated GFR (MDRD) 55 (>60) mL/min BUN/Creatinine Ratio 12.3 L (14-18) Glucose 134 H (80-115) mg/dL Calcium 8.1 L (8.5-10.1) mg/dL Total Bilirubin 0.9 (0.2-1.0) mg/dL AST 47 H (15-37) U/L ALT 33 (16-63) U/L Alkaline Phosphatase 39 L (46-116) U/L Total Protein 6.2 L (6.4-8.2) g/dl Albumin 3.0 L (3.4-5.0) g/dl Globulin 3.2 gm/dL Albumin/Globulin Ratio 0.9 L (1-2) Med Orders - Current: Current Medications Discontinued Medications Acetaminophen (Tylenol) 975 mg PO ONETIME [facility] Stop: 12/19/18 18:00 Last Admin: 12/19/18 11:34 Dose: 975 mg Albuterol (Proventil Hfa) 0 gm INH Q4H PRN PRN Reason: SHORTNESS OF BREATH Aspirin (Ecotrin) 325 mg PO BID [facility] Last Admin: 12/20/18 09:24 Dose: 325 mg Bisacodyl (Dulcolax) 5 mg PO DAILY PRN PRN Reason: Constipation Bupivacaine HCl (Marcaine 0.25%) Confirm Administered Dose 30 ml .ROUTE .STK- MED ONE Stop: 12/19/18 12:09 Last Admin: 12/19/18 15:40 Dose: 30 ml Cefazolin Sodium (Ancef) Confirm Administered Dose 2 gm .ROUTE .STK-MED ONE Stop: 12/19/18 12:09 Last Admin: 12/19/18 15:37 Dose: 2 gm Morphine Sulfate 8 mg/Epinephrine HCl 0.3 mg/Cefuroxime Sodium 750 mg/Ketorolac Tromethamine 30 mg/Sodium Chloride 27.9 ml 0 mg .XX ONETIME ONE Stop: 12/19/18 12:01 Last Admin: 12/19/18 15:42 Dose: 788.3 mg Cyclobenzaprine HCl (Flexeril) 10 mg PO TID PRN PRN Reason: Spasms Last Admin: 12/20/18 02:44 Dose: 10 mg Docusate Sodium (Colace) 100 mg PO BID [facility] Last Admin: 12/20/18 09:24 Dose: 100 mg Ephedrine Sulfate (Ephedrine In Ns) Confirm Administered Dose 50 mg .ROUTE .STK- MED ONE Stop: 12/19/18 15:01 Ephedrine Sulfate (Ephedrine In Ns) Confirm Administered Dose 25 mg .ROUTE .STK- MED ONE Stop: 12/19/18 15:19 Famotidine (Pepcid) 20 mg PO Q12H [facility] Last Admin: 12/20/18 09:24 Dose: 20 mg Fentanyl (Sublimaze) Confirm Administered Dose 250 mcg .ROUTE .STK-MED ONE Stop: 12/19/18 11:47 Lactated Ringer's (Ringers, Lactated) 1,000 mls @ 125 mls/hr IV ASDIRECTED [facility] Stop: 12/19/18 23:00 Last Admin: 12/19/18 11:10 Dose: 125 mls/hr Cefazolin Sodium/Dextrose 2 gm (/ Premix) 50 mls @ 100 mls/hr IV Q8H [facility] Stop: 12/20/18 12:29 Last Admin: 12/20/18 11:14 Dose: 100 mls/hr Vancomycin HCl 1 gm/Vancomycin HCl 250 mg/ Sodium Chloride 250 mls @ 166.667 mls/hr IV ONETIME ONE Stop: 12/19/18 13:29 Last Admin: 12/19/18 12:36 Dose: 166.667 mls/hr Iodine (Iodine 2% Mild Tincture) Confirm Administered Dose 30 ml .ROUTE .STK- MED ONE Stop: 12/19/18 12:09 Last Admin: 12/19/18 15:36 Dose: 18 ml Ketorolac Tromethamine (Toradol) 15 mg IVPUSH Q6H PRN PRN Reason: Pain Last Admin: 12/20/18 02:42 Dose: 15 mg Lidocaine HCl (Xylocaine-Mpf 1%) Confirm Administered Dose 4 ml .ROUTE .STK-MED ONE Stop: 12/19/18 11:47 Lidocaine/Sodium Bicarbonate (Buffered Lidocaine 1% In Ns 8.4%) 0.25 ml IDERM ONETIME PRN PRN Reason: Prior to IV Start Stop: 12/19/18 23:00 Lisinopril (Prinivil) 20 mg PO DAILY [facility] Last Admin: 12/20/18 09:24 Dose: 20 mg Magnesium Hydroxide (Milk Of Magnesia) 30 ml PO BID PRN PRN Reason: Constipation Midazolam HCl (Versed 1 Mg/Ml) Confirm Administered Dose 2 mg .ROUTE .STK-MED ONE Stop: 12/19/18 11:47 Morphine Sulfate (Morphine) 2 mg IVPUSH Q2H PRN PRN Reason: Breakthrough Pain Morphine Sulfate (Duramorph Pf) Confirm Administered Dose 10 mg .ROUTE .STK-MED ONE Stop: 12/19/18 11:58 Naloxone HCl (Narcan) 0.1 mg IVPUSH Q5M PRN PRN Reason: Oversedation Ondansetron HCl (Zofran) 4 mg IVPUSH Q6H PRN PRN Reason: Nausea/Vomiting Oxycodone HCl (Oxycontin) 10 mg PO ONETIME [facility] Stop: 12/19/18 23:00 Last Admin: 12/19/18 11:34 Dose: 10 mg Oxycodone/Acetaminophen (Percocet 325-5 Mg) 1 - 2 tab PO Q4H PRN PRN Reason: Pain Last Admin: 12/20/18 13:02 Dose: 2 tab Pregabalin (Lyrica) 50 mg PO ONETIME [facility] Stop: 12/19/18 18:00 Last Admin: 12/19/18 11:34 Dose: 50 mg Propofol (Diprivan 20 Ml) Confirm Administered Dose 200 mg .ROUTE .STK-MED ONE Stop: 12/19/18 11:47 Propofol (Diprivan 20 Ml) Confirm Administered Dose 600 mg .ROUTE .STK-MED ONE Stop: 12/19/18 14:59 Senna (Senna) 8.6 mg PO BID PRN PRN Reason: Constipation Simvastatin (Zocor) 40 mg PO DAILY [facility] Last Admin: 12/20/18 09:24 Dose: 40 mg Sodium Chloride (Saline Flush) 10 ml FLUSH ASDIRECTED PRN PRN Reason: Keep Vein Open Tranexamic Acid (Cyklokapron) Confirm Administered Dose 1,000 mg .ROUTE .STK- MED ONE Stop: 12/19/18 12:09 Last Admin: 12/19/18 15:45 Dose: 1,000 mg Vancomycin HCl (Pharmacy To Dose - Vancomycin) 1 dose .XX ONETIME ONE Stop: 12/19/18 10:39 Last Admin: 12/20/18 03:57 Dose: Not Given Vancomycin HCl (Vancomycin) Confirm Administered Dose 1 gm .ROUTE .STK-MED ONE Stop: 12/19/18 12:09 Last Admin: 12/19/18 15:44 Dose: 1 gm
== END 2018-12-20 13:05 | disposition home or self-care (01) | DRG 470 ==
LOC: JD.MS 12-19 10:00
PROVIDERS: ADMIT Orthopaedic Surgery; ATTEND Orthopaedic Surgery
PROC: 3E0U029 Introduction of Other Anti-infective into Joints, Open Approach (ICD-10-PCS; principal; 2018-12-19)
PROC: 0SR904Z Replacement of Right Hip Joint with Ceramic on Polyethylene Synthetic Substitute, Open Approach (ICD-10-PCS; principal; 2018-12-19)
DX: M16.11 Unilateral primary osteoarthritis, right hip (principal); I25.10 Atherosclerotic heart disease of native coronary artery without angina pectoris; E78.5 Hyperlipidemia, unspecified; I10 Essential (primary) hypertension; F17.220 Nicotine dependence, chewing tobacco, uncomplicated; J44.9 Chronic obstructive pulmonary disease, unspecified; J45.20 Mild intermittent asthma, uncomplicated; H54.7 Unspecified visual loss; E78.00 Pure hypercholesterolemia, unspecified; I44.4 Left anterior fascicular block; K21.9 Gastro-esophageal reflux disease without esophagitis; R00.1 Bradycardia, unspecified; E66.3 Overweight; Z68.31 Body mass index [BMI] 31.0-31.9, adult; I25.2 Old myocardial infarction; Z95.1 Presence of aortocoronary bypass graft; Z87.74 Personal history of (corrected) congenital malformations of heart and circulatory system; Z79.899 Other long term (current) drug therapy; Z87.11 Personal history of peptic ulcer disease; Z86.14 Personal history of Methicillin resistant Staphylococcus aureus infection; Z79.82 Long term (current) use of aspirin
CPT/HCPCS: 36415; 73501-26-RT; 73501-RT; 80053; 85027; 86850; 86900; 86901; 87641; 94760; 94762; 97110-GP; 97116-GP; 97161-GP; 97165-GO; 97535-GO; A9270-GY; C1776; J0171; J0690; J0697; J1885; J2001; J2250; J2270; J2704; J3010; J3370; J3490; J7050; J7120

== ENCOUNTER 2024-12-28 09:29 | Day surgery (SDC) | payer MEDICARE, OTHER ==
[~2024-12-28 09:29] MED LIST: Sodium Chloride 0.9% 10 ML Syringe FLUSH PRN; Sodium Chloride 0.9% 10 ML Syringe FLUSH SCH
[2024-12-28] MEDS: Lactated Ringers 1,000 ML IV SCH (09:50)
[2024-12-28] MEDS ORDERED: fentaNYL 100 MCG/2 ML SDV ONE (10:08)
[2024-12-28] MEDS ORDERED: Propofol 200 MG/20 ML SDV ONE (10:09)
[2024-12-28] MEDS ORDERED: HYDROmorphone 0.5 MG/0.5 ML Syringe IVPUSH PRN (10:20)
[2024-12-28] MEDS ORDERED: Ondansetron 4 MG/2 ML SDV IVPUSH PRN (10:20)
[2024-12-28] MEDS ORDERED: fentaNYL 100 MCG/2 ML SDV IVPUSH PRN (10:20)
[2024-12-28] MEDS ORDERED: ceFAZolin 2 GM Vial ONE (10:48)
[2024-12-28] MEDS: Bupivacaine 0.25% 10 ML SDV ONE (11:01)
[2024-12-28] MEDS: Lidocaine 1% 10 ML MDV ONE (11:01)
== END 2024-12-28 11:52 | disposition home or self-care (01) ==
LOC: JD.SDS 09:29
PROVIDERS: ATTEND Orthopaedic Surgery
DX: G56.11 Other lesions of median nerve, right upper limb (principal); G56.01 Carpal tunnel syndrome, right upper limb; I10 Essential (primary) hypertension; E11.9 Type 2 diabetes mellitus without complications; E78.5 Hyperlipidemia, unspecified; J45.909 Unspecified asthma, uncomplicated; I25.10 Atherosclerotic heart disease of native coronary artery without angina pectoris; K21.9 Gastro-esophageal reflux disease without esophagitis; Z79.82 Long term (current) use of aspirin; Z79.84 Long term (current) use of oral hypoglycemic drugs; Z79.899 Other long term (current) drug therapy
CPT/HCPCS: 64721; J0665; J0690; J2003; J2704; J3010; J7120; 01810; 99100